=== PATIENT | female | born 1990 | race African-American/Black ===

== ENCOUNTER 2017-02-08 09:11 | Emergency (ER) | payer BC, OTHER ==
[~2017-02-08] VITALS: Ht 170.2 cm; Wt 68.0 kg
[~2017-02-08 09:11] MED LIST: ALBUTEROL SULFAT8 MG; BENTYL20 MG PO; CIPROFLOXACIN500 M1 PO; FLAGYL500 MG PO; FLEXERIL PO; IBUPROFEN 600600 M1 PO; NOHOMEMEDICATIONS; NORCO 5-325 TA1 EACH PO; PHENERGAN 25 MG25 M1 PO; PHENERGAN25 M2 RC; PRENATAL; PROVENTIL HFA6.7 G1; VENTOLIN17 GM INH; ZOFRAN ODT4 MG PO
[2017-02-08] MEDS ORDERED: ONDANSETRON HCL4 M2 PO (10:37)
[2017-02-08] MEDS ORDERED: MOBIC15 MG PO (10:37)
[2017-02-08 10:45] VITALS: BP 126/45
== END 2017-02-08 16:36 ==
LOC: ER 09:11
DX: S00.83XA Contusion of other part of head, initial encounter (principal); S06.0X0A Concussion without loss of consciousness, initial encounter; J45.909 Unspecified asthma, uncomplicated; Z88.5 Allergy status to narcotic agent; F10.99 Alcohol use, unspecified with unspecified alcohol-induced disorder; W22.8XXA Striking against or struck by other objects, initial encounter; Y93.89 Activity, other specified; Y92.89 Other specified places as the place of occurrence of the external cause; Y99.8 Other external cause status

== ENCOUNTER → 2017-06-06 | Outpatient (CLI) | payer BC, OTHER ==
[~2017-06-06] MED LIST changes: +MOBIC15 MG PO; +ONDANSETRON HCL4 M2 PO
== END ==
LOC: ULTRA 09:56
DX: R10.2 Pelvic and perineal pain (principal); T83.32XA Displacement of intrauterine contraceptive device, initial encounter

== ENCOUNTER 2018-12-06 08:12 | Emergency (ER) | payer BC, OTHER ==
[~2018-12-06] VITALS: Ht 170.2 cm; Wt 68.0 kg
[2018-12-06] MEDS ORDERED: PENICILLIN V P500 MG PO (08:21)
[2018-12-06 09:17] LABS: URINE BILIRUBIN NEGATIVE (Negative); URINE BLOOD TRACE (Negative); URINE CLARITY CLEAR; URINE COLOR YELLOW; URINE GLUCOSE-RANDOM* NEGATIVE (Negative); URINE KETONES TRACE (Negative); URINE LEUKOCYTES-REFLEX NEGATIVE (Negative); URINE NITRITE-REFLEX NEGATIVE (Negative); URINE PROTEIN (DIPSTICK) TRACE (Negative); URINE SPECIFIC GRAVITY >= 1.030 (1.005-1.035); URINE UROBILINOGEN 0.2 E.U./dl (0.2-1.0)
[2018-12-06 09:21] LABS: ABSOLUTE NEUTROPHILS 5.3 thou/uL (1.4-8.2); BASOPHILS 0.3 % (0.0-2.0); EOSINOPHILS 0.1 % (0.0-3.0); HEMATOCRIT 40.2 % (37.0-47.0); HEMOGLOBIN 13.1 gm/dL (12.0-15.0); LYMPHOCYTES 17.6 % (24.0-44.0); MCHC 32.5 g/dL (28.0-37.0); MCV 73.9 fL (80.0-100.0); MONOCYTES 8.7 % (1.0-8.0); PLATELET COUNT 151 thou/uL (150-400); POLYS 73.3 % (36.0-66.0); RBC 5.44 mil/uL (4.20-5.00); RDW 13.6 % (10.5-14.5); WBC 7.2 thou/uL (4.0-11.0)
[2018-12-06 09:30] LABS: CALCIUM 9.4 mg/dL (8.5-10.1); CREATININE 0.8 mg/dL (0.6-1.0); POTASSIUM 3.3 mmol/L (3.5-5.1)
[2018-12-06 09:36] LABS: ALBUMIN 3.7 g/dL (3.4-5.0); TOTAL BILIRUBIN 0.1 mg/dL (<0.1-1.0); TOTAL PROTEIN 7.8 g/dL (6.4-8.2)
[2018-12-06] MEDS ORDERED: ZOFRAN ODT4 MG DISSOLVE (10:21)
[2018-12-06 10:41] VITALS: BP 111/56
== END 2018-12-06 10:59 | disposition home or self-care (01) ==
LOC: ER 08:12
PROVIDERS: Emergency Medicine
DX: S30.861A Insect bite (nonvenomous) of abdominal wall, initial encounter (principal); R11.2 Nausea with vomiting, unspecified; R19.7 Diarrhea, unspecified; Z87.09 Personal history of other diseases of the respiratory system; Z88.5 Allergy status to narcotic agent; J45.909 Unspecified asthma, uncomplicated; Z98.890 Other specified postprocedural states; W57.XXXA Bitten or stung by nonvenomous insect and other nonvenomous arthropods, initial encounter; Y92.89 Other specified places as the place of occurrence of the external cause; Y93.89 Activity, other specified; Y99.8 Other external cause status

== ENCOUNTER 2019-03-06 11:54 | Emergency (ER) | payer BC, OTHER ==
[~2019-03-06] VITALS: Ht 170.2 cm; Wt 63.5 kg
[~2019-03-06 11:54] MED LIST changes: +PENICILLIN V P500 MG PO; +ZOFRAN ODT4 MG DISSOLVE
[2019-03-06] MEDS ORDERED: NAPROSYN500 MG PO (13:22)
[2019-03-06 13:41] VITALS: BP 111/71
== END 2019-03-06 13:20 | disposition home or self-care (01) ==
LOC: ER 11:54
DX: S93.692A Other sprain of left foot, initial encounter (principal); J45.909 Unspecified asthma, uncomplicated; Z98.890 Other specified postprocedural states; Z88.5 Allergy status to narcotic agent; W18.39XA Other fall on same level, initial encounter; Y92.89 Other specified places as the place of occurrence of the external cause; Y93.89 Activity, other specified; Y99.8 Other external cause status

== ENCOUNTER 2019-09-19 08:41 | Emergency (ER) | payer BC, OTHER ==
[~2019-09-19] VITALS: Ht 170.2 cm; Wt 68.0 kg
[~2019-09-19 08:41] MED LIST changes: +NAPROSYN500 MG PO
[2019-09-19] MEDS ORDERED: TESSALON PERLE100 MG PO (10:52)
[2019-09-19 12:03] VITALS: BP 93/50
== END 2019-09-19 12:04 | disposition home or self-care (01) ==
LOC: ER 08:41
DX: J06.9 Acute upper respiratory infection, unspecified (principal); J45.909 Unspecified asthma, uncomplicated; Z98.890 Other specified postprocedural states; Z88.5 Allergy status to narcotic agent

== ENCOUNTER 2019-10-20 09:06 | Emergency (ER) | payer BC, OTHER ==
[~2019-10-20] VITALS: Ht 170.2 cm; Wt 68.0 kg
[~2019-10-20 09:06] MED LIST changes: +TESSALON PERLE100 MG PO
[2019-10-20] MEDS ORDERED: TESSALON PERLE100 MG PO (10:28)
[2019-10-20] MEDS ORDERED: ZOFRAN ODT4 MG PO (10:28)
[2019-10-20 10:49] VITALS: BP 98/73
== END 2019-10-20 10:35 | disposition home or self-care (01) ==
LOC: ER 09:06
DX: J10.1 Influenza due to other identified influenza virus with other respiratory manifestations (principal); J45.909 Unspecified asthma, uncomplicated; Z98.890 Other specified postprocedural states; Z88.5 Allergy status to narcotic agent

== ENCOUNTER 2021-01-17 20:45 | Emergency (ER) | payer OTHER ==
[~2021-01-17] VITALS: Ht 170.2 cm; Wt 81.7 kg
[2021-01-17] MEDS ORDERED: PENICILLIN V P500 MG PO (22:08)
[2021-01-17] MEDS ORDERED: MOBIC15 MG PO (22:08)
[2021-01-17 22:28] VITALS: BP 122/68
== END 2021-01-17 22:28 | disposition home or self-care (01) ==
LOC: ER 20:45
DX: S02.5XXA Fracture of tooth (traumatic), initial encounter for closed fracture (principal); K04.7 Periapical abscess without sinus; J45.909 Unspecified asthma, uncomplicated; Z79.899 Other long term (current) drug therapy; Z88.5 Allergy status to narcotic agent; X58.XXXA Exposure to other specified factors, initial encounter; Y93.89 Activity, other specified; Y92.89 Other specified places as the place of occurrence of the external cause; Y99.8 Other external cause status

== ENCOUNTER 2021-01-25 18:25 | Emergency (ER) | payer OTHER ==
[~2021-01-25] VITALS: Ht 170.2 cm; Wt 81.7 kg
[2021-01-25 18:28] VITALS: BP 114/71
[2021-01-25] MEDS ORDERED: MEDROLDOSEPACK PO (19:15)
[2021-01-25] MEDS ORDERED: CLEOCIN HCL300 MG PO (19:15)
[2021-01-25] MEDS ORDERED: CLEOCIN HCL150 M1 PO (19:15)
== END 2021-01-25 19:30 | disposition home or self-care (01) ==
LOC: ER 18:25
DX: H10.12 Acute atopic conjunctivitis, left eye (principal); J45.909 Unspecified asthma, uncomplicated; Z88.5 Allergy status to narcotic agent; Z79.899 Other long term (current) drug therapy; Z98.890 Other specified postprocedural states

== ENCOUNTER 2021-03-21 13:37 | Emergency (ER) | payer OTHER ==
[~2021-03-21] VITALS: Ht 170.2 cm; Wt 81.7 kg
[~2021-03-21 13:37] MED LIST changes: +CLEOCIN HCL150 M1 PO; +CLEOCIN HCL300 MG PO; +MEDROLDOSEPACK PO
[2021-03-21] MEDS ORDERED: NORCO5 PO (15:24)
[2021-03-21 15:56] VITALS: BP 122/59
== END 2021-03-21 15:56 | disposition home or self-care (01) ==
LOC: ER 13:37
DX: S92.355A Nondisplaced fracture of fifth metatarsal bone, left foot, initial encounter for closed fracture (principal); J45.909 Unspecified asthma, uncomplicated; Z88.5 Allergy status to narcotic agent; W10.8XXA Fall (on) (from) other stairs and steps, initial encounter; Y93.89 Activity, other specified; Y92.89 Other specified places as the place of occurrence of the external cause; Y99.8 Other external cause status